=== PATIENT | male | born 1975 | race Caucasian/White ===

== ENCOUNTER 2017-07-05 22:51 | Emergency (ER) | payer BC ==
[~2017-07-05] VITALS: Ht 180.3 cm; Wt 89.5 kg
[2017-07-05 22:54] VITALS: TEMP 37; Ht 180.3 cm; Wt 89.5 kg
[2017-07-05] MEDS ORDERED: OPTIRAY 320 IV PRN (23:45)
[2017-07-06 00:05] LABS: ISTAT CREATININE 0.9 mg/dl (0.6-1.3); ISTAT IONIZED CALCIUM 1.2 mmol/l (1.12-1.32); ISTAT POTASSIUM 3.9 mEq/L (3.3-5.0)
[2017-07-06] MEDS ORDERED: IBUPROFEN 600 MG TAB PO STA (02:02)
--- NOTE | 2017-07-06 02:02 | EMERGENCY ROOM VISIT NOTE ---
History Report prepared by Renard: Gauri Olguin Under the Supervision of: Dr. Marcie Bowden D.O. First contact with patient: 23:16 Chief Complaint: FALL Stated Complaint: HEADACHE,FELL EARLIER TODAY History of Present Illness The patient is a 41 year old male who presents to the Emergency Room with complaints of an episode of a fall occurring 10 hours ago. The patient states that he was tearing down a rotted second floor deck when a beam let loose and he fell. He reports that he fell 9 feet to a deck below onto his back. He reports that he was able to reach into his belt to call a coworker that was on the road. He states that his coworker helped him up and he went home for some rest. The patient states that he felt sore down his back and had a stiff neck, but otherwise felt okay. He reports that he started to develop a headache on the side and top his head. He states that he usually does not get headaches and this one started to get fairly bad. The patient notes that the development of the headache was what prompted him to come to the ED. He notes that he didn't think he hit his head that hard, but it happened so fast he might be wrong. He notes that his headache gets worse when he lies down. The patient states that he was nauseous right after the fall, but hadn't eaten all day. He reports that once he ate, he felt better. The patient complains of right hand numbness. He notes that he had blurry vision, but hasn't had his eyes checked in a while and is unsure if it was that way prior to the fall. The patient denies loss of consciousness, numbness up his right arm, dizziness, lightheadedness, ringing in his ears, chest pain, shortness of breath, abdominal pain, and urinary symptoms. Source of History: patient Onset: 10 hours ago Position: other (global) Quality: other (fall) Timing: other (episode) Associated Symptoms: + headache, + neck pain, + back pain, + numbness ( right hand), No chest pain, No SOB, No nausea, No abdominal pain, No urinary symptoms Note: The patient complains of blurry vision. The patient denies numbness up his right arm, dizziness, lightheadedness, and ringing in his ears. Review of Systems See HPI for pertinent positives & negatives. A total of 10 systems reviewed and were otherwise negative. Past Medical & Surgical Medical Problems: (1) Foreign body, eye Family History Diabetes mellitus FHx: cancer Social History Smoking Status: Current Every Day Smoker Marital Status: Housing Status: lives with family Occupation Status: employed Current/Historical Medications No Active Prescriptions or Reported Meds Allergies Coded Allergies: No Known Allergies (Verified , 07/06/17) Physical Exam Vital Signs Date Time Temp Pulse Resp B/P (MAP) Pulse Ox O2 Delivery O2 Flow Rate FiO2 07/06/17 02:09 67 17 108/69 97 Room Air 07/06/17 00:45 69 18 114/71 95 Room Air 07/05/17 22:54 37.0 76 16 125/80 95 Room Air Physical Exam GENERAL: alert, well appearing, well nourished, no distress, non-toxic HEAD: normal cephalic, atraumatic EYE EXAM: normal conjunctiva, PERRL and EOM's grossly intact OROPHARYNX: no exudate, no erythema, lips, buccal mucosa, and tongue normal and mucous membranes are moist EARS: TMs clear b/l NECK: supple, no nuchal rigidity, no adenopathy, non-tender CHEST: stable to compression anteriorly and posteriorly LUNGS: clear to auscultation. Normal chest wall mechanics HEART: no murmurs, S1 normal and S2 normal ABDOMEN: abdomen soft, non-tender, normo-active bowel sounds, no masses, no rebound or guarding. PELVIS: stable to compression anteriorly and posteriorly BACK: Back is symmetrical on inspection and there is no deformity, no CVA tenderness, upper T- spine and lumbar spine tenderness. UPPER EXTREMITIES: full active and passive range of motion of all joints without tenderness to palpation. Ever so slightly decreased hand car parker on the right, but equal biceps and triceps strength bilaterally at 5/5. Normal sensory. Subjective numbness to the distal second thru fifth digits on the right hand. LOWER EXTREMITIES: full active and passive range of motion of all joints without tenderness to palpation. 5/5 strength bilaterally. NEURO EXAM: Normal sensorium, cranial nerves II-XII grossly intact, normal speech, no gross weakness of arms, no gross weakness of legs. GCS: 15. Medical Decision & Procedures ER Provider Diagnostic Interpretation: Radiology results have been interpreted by the radiologist and reviewed by me. CT HEAD: No intracranial hemorrhage, mass effect or calvarial fracture. Ventricles are within normal limits and midline. Visualized paranasal sinuses and orbits appear within limits. Partial opacification of the mastoids and possible soft tissue thickening of the external auditory canals. Radiologist: Dayron Doran MD Study ready at 00:40 and initial results transmitted at 01:27. CT C SPINE: No fracture or malalignment. Radiologist: Dayron Doran MD Study ready at 00:42 and initial results transmitted at 01:30. CT T SPINE: No fracture or malalignment. Radiologist: Dayron Doran MD Study ready at 00:51 and initial results transmitted at 01:50. CT L SPINE: No fracture or malalignment. Radiologist: Dayron Doran MD Study ready at 00:51 and initial results transmitted at 01:51. CT CHEST With Contrast: No evidence of acute traumatic injury. Radiologist: Dayron Doran MD Study ready at 00:46 and initial results transmitted at 01:44. CT ABDOMEN & PELVIS With Contrast: No evidence of acute traumatic injury. Radiologist: Dayron Doran MD Study ready at 00:46 and initial results transmitted at 01:44. Laboratory Results Test 07/05/17 23:49 Bedside Hemoglobin 16.3 g/dl (14.0-18.0) Bedside Hematocrit 48 % (42-52) Bedside Sodium 140 mEq/L (135-144) Bedside Potassium 3.9 mEq/L (3.3-5.0) Bedside Chloride 102 mEq/L (101-112) Bedside Total CO2 25 mEq/l (24-31) Anion Gap 19.0 mmol/L (16-25) Bedside Blood Urea Nitrogen 12 mg/dl (7-18) Bedside Creatinine 0.9 mg/dl (0.6-1.3) Bedside Glucose (other) 89 mg/dl (70-99) Bedside Ionized Calcium (Cj) 1.20 mmol/l (1.12-1.32) Laboratory results per my review. Medications Administered Medications (Trade) Dose Ordered Sig/Morris Route Start Time Stop Time Status Last Admin Dose Admin Ibuprofen (Motrin Tab) 600 mg NOW STAT PO 07/06/17 02:02 07/06/17 02:03 DC 07/06/17 02:08 600 MG ECG Per My Interpretation Indication: back/shoulder pain Rate (beats per minute): 70 Rhythm: sinus rhythm Findings: no acute ischemic change, no ectopy, other (normal axis, normal intervals) ED Course 2316: The patient was evaluated in room B2. A complete history and physical exam was performed. 020: Ordered Motrin Tab 600 mg PO. 211: Upon reevaluation, the patient is feeling better, but still has a headache. On repeat neuro exam, the patient no longer has numbness in his had and his car parker strength is equal bilaterally. I discussed the findings and the treatment plan with the patient. He verbalizes agreement and understanding. The patient was discharged home. Medical Decision Differential diagnoses include major intracranial, cervical, spinal, thoracic, abdominal, pelvic and neurologic injury. Fracture, contusion, sprain, strain, laceration, abrasions included as well. Pt with concerning presentation for trauma with negative imaging and reassuring labs several hours after event. VS stable throughout. Initial mild right hand numbness/car parker weakness may have been due to minor neuropraxia as pt states he hit his right elbow. He stated he felt as though it was improving slowly from earlier and by my repeat exam sx had resolved and car parker strength was normal as was all other strength testing. Pt with otw normal neuro exam. Discussed with him concussion precautions, f/u with pcp, sx to watch/return for, he verbalized understanding and was agreeable with plan. Pt well appearing at DC, ambulating with a steady gait. All questions answered at bedside. I have a low suspicion for additional occult traumatic injury. Pt made aware that our radiologist would overread imaging in the morning and he would be called with any discrepancies. Head Trauma GCS Score: 15 Medication Reconcilliation Current Medication List: was personally reviewed by me Blood Pressure Screening Patient's blood pressure: Normal blood pressure Blood pressure disposition: Did not require urgent referral Impression Primary Impression: Fall Additional Impressions: CHI (closed head injury) Concussion Back pain Scribe Attestation The scribe's documentation has been prepared under my direction and personally reviewed by me in its entirety. I confirm that the note above accurately reflects all work, treatment, procedures, and medical decision making performed by me. Departure Information Dispostion Home / Self-Care Prescriptions No Active Prescriptions or Reported Meds Referrals [facility] Michael M.D. (PCP) Forms HOME CARE DOCUMENTATION FORM, IMPORTANT VISIT INFORMATION Patient Instructions My [facility] Additional Instructions Please stay well-hydrated and drink plenty of water. You may use Tylenol and ibuprofen as needed for pain. Please avoid any heavy lifting or strenuous activity until you are feeling better. If you have any worsening symptoms including persistent or worsening headache, vision changes, lightheadedness or dizziness, numbness or tingling, weakness in arm or leg, trouble breathing, nausea or vomiting, or any other new concerns, please return the emergency room. Please call follow-up with your family doctor as a precaution to assure that your symptoms are improving. Problem Qualifiers Primary Impression: Fall Encounter type: initial encounter Qualified Codes: W19.XXXA - Unspecified fall, initial encounter Additional Impressions: CHI (closed head injury) Encounter type: initial encounter Qualified Codes: S09.90XA - Unspecified injury of head, initial encounter Concussion Encounter type: initial encounter Loss of consciousness presence/duration: without LOC Qualified Codes: S06.0X0A - Concussion without loss of consciousness, initial encounter Back pain Back pain location: back pain in unspecified location Chronicity: acute Back pain laterality: midline Qualified Codes: M54.9 - Dorsalgia, unspecified
[2017-07-06 02:09] VITALS: BP 108/69; PULSE 67; O2SAT 97
--- NOTE | 2017-07-06 07:10 | DIAGNOSTIC IMAGING REPORT ---
HEAD CT NONCONTRAST CT DOSE: HISTORY: Headache. trauma TECHNIQUE: Multiaxial CT images of the head were performed without the use of intravenous contrast. Automated exposure control was utilized for this study. A dose lowering technique was utilized adhering to the principles of ALARA. Comparison: None. Findings: A few opacified right inferior mastoid air cells. The paranasal sinuses and left mastoid air cells are clear. Soft tissue opacification of the right external auditory canal. This is likely chronic. The calvarium and skull base are intact. The ventricles and sulci are within normal limits. There is no mass, hematoma, midline shift, or acute infarct. Impression: No acute intracranial abnormality. Electronically signed by: Alessandro Mtz M.D. 07/06/2017 7:09 AM Dictated Date/Time: 07/06/2017 7:06 AM
--- NOTE | 2017-07-06 07:14 | DIAGNOSTIC IMAGING REPORT ---
CERVICAL SPINE CT CT DOSE: HISTORY: trauma TECHNIQUE: Multiaxial CT images of the cervical spine were performed and reformatted in the sagittal and coronal plane without the use of contrast. A dose lowering technique was utilized adhering to the principles of ALARA. COMPARISON: None. FINDINGS: No fractures. No subluxation. Prevertebral soft tissues and the C1-C2 interval are intact. No pneumothorax. A 4 mm nodule within the right lung apex. IMPRESSION: No fractures within the cervical spine. A 4 mm nodule within the right lung apex. One-year chest CT follow up is recommended. This finding was called/faxed to the emergency Department due to the follow-up recommendation. Electronically signed by: Alessandro Mtz M.D. 07/06/2017 7:12 AM Dictated Date/Time: 07/06/2017 7:09 AM
--- NOTE | 2017-07-06 07:43 | DIAGNOSTIC IMAGING REPORT ---
CT SCAN OF THE THORACIC SPINE WITHOUT IV CONTRAST CLINICAL HISTORY: Trauma. Fall. COMPARISON STUDY: Chest CT performed concurrently on 07/06/2017. TECHNIQUE: CT scan of the thoracic spine is performed from the lower cervical spine to the upper lumbar spine. Images are reviewed in the axial, sagittal, and coronal planes. IV contrast was not administered specifically for this examination. There is IV contrast present from the concurrently performed chest CT. A dose lowering technique was utilized adhering to the principles of ALARA. CT DOSE: 2706.97 mGy.cm FINDINGS: The skeletal structures are well mineralized. There is no evidence of fracture or malalignment involving the thoracic spine. Vertebral body height and alignment are maintained. The transverse and spinous processes appear intact. No lytic or blastic lesion is seen. Tiny anterior osteophytes are seen throughout. The intervertebral disc spaces appear maintained. There is no evidence of large disc herniation or high-grade central canal stenosis by CT criteria. The paraspinous soft tissues are within normal limits. The thyroid gland is normal as imaged. There is a 9 mm pleural-based nodule in the right upper lobe seen on image 79. The lung parenchyma is otherwise clear as visualized. No pneumothorax is seen. IMPRESSION: 1. There is no evidence of fracture or malalignment involving the thoracic spine. 2. There is a 9 mm pleural-based nodule in the right upper lobe. See report of chest CT performed concurrently for detailed findings and follow-up recommendations. Dictated: 07/06/2017 7:29 AM Transcribed: 07/06/2017 7:43 AM Vel Electronically signed by: Brian Vera M.D. 07/06/2017 7:44 AM Dictated Date/Time: 07/06/2017 7:29 AM
--- NOTE | 2017-07-06 07:45 | DIAGNOSTIC IMAGING REPORT ---
CT SCAN OF THE CHEST, ABDOMEN, AND PELVIS WITH IV CONTRAST CLINICAL HISTORY: Trauma. Fall. COMPARISON STUDY: KUB dated 12/07/2015. TECHNIQUE: Following the IV administration of 115 of Optiray 320, CT scan of the chest, abdomen, and pelvis was performed from the thoracic inlet to the proximal femora. Images are reviewed in the axial, sagittal, and coronal planes. IV contrast was administered without complication. Automated dose control exposure was utilized. A dose lowering technique was utilized adhering to the principles of ALARA. FINDINGS: CHEST: Thyroid: Imaged portions of the thyroid gland are normal in size and attenuation. Thoracic aorta: The thoracic aorta is normal in caliber and demonstrates bovine variant arch anatomy. No dissection is seen. Pulmonary vasculature: The pulmonary trunk is mildly dilated measuring 3.4 cm in diameter. This suggests pulmonary artery hypertension. There are no filling defects identified in the central pulmonary vessels to indicate pulmonary embolus. Note that this examination was not protocoled for evaluation of the pulmonary arteries. Heart: The heart is top normal in size and without pericardial effusion. Lungs and pleural spaces: Evaluation of the lung parenchyma is modestly degraded by motion artifact. There is no airspace consolidation, pleural effusion, or pneumothorax. Dependent atelectasis is noted. The trachea and central airways are clear. There is a 9 mm pleural-based nodule in the right upper lobe seen on image #78. There is an 8 mm nodule at the lateral right lung base seen on image #222. A 3 mm pleural-based nodule is seen in the right lower lobe along the major fissure on image #172, and a 7 mm pleural-based nodule is seen in the lingula along the major fissure on image #144. A 5 mm pleural-based nodule at the anterior left lung base as seen on image #208. Mediastinum: There is no mediastinal hematoma or lymphadenopathy. Isabel: Clear. Axillae: There is no axillary lymphadenopathy. Bony thorax: No lytic or blastic lesions are identified. ABDOMEN AND PELVIS: Liver: The contrast-enhanced liver is normal in size, contour, and attenuation. There is no intrahepatic or ductal dilatation. The hepatic veins and portal veins are patent. Fatty infiltration is seen adjacent to falciform ligament. Gallbladder: Unremarkable. Spleen: Normal in size and attenuation. Pancreas: Unremarkable. Adrenal glands: Unremarkable. Kidneys: The contrast enhanced kidneys are normal in size and without hydronephrosis. The kidneys enhance symmetrically. Abdominal vasculature: The abdominal aorta is normal in course and caliber. Stomach and bowel: There is a small hiatal hernia. The stomach and duodenum otherwise normal in configuration. No bowel obstruction is seen. The appendix is well-visualized and normal. Peritoneum: There is no intraperitoneal free air or abdominal ascites. There is a small fat-containing umbilical hernia. Lymphadenopathy: None. Pelvic viscera: The bladder, prostate, and seminal vesicles are normal as visualized. Skeletal structures: The lumbosacral spine and bony pelvis appear intact. No lytic or blastic lesions are seen. IMPRESSION: 1. There is no acute posttraumatic intrathoracic abnormality. 2. There is no evidence of solid organ injury in the abdomen or pelvis. 3. No fracture is seen. 4. There is no airspace consolidation, pleural effusion, or pneumothorax. 5. There are scattered pulmonary and pleural-based pulmonary nodules as above measuring up to 9 mm. These are pathologically indeterminant and should be followed as per the Fleischner criteria. See below. Please refer to below summary of Fleischner criteria recommendations for follow-up of incidental CT nodules (Nick Sanchez, Guidelines for management of small pulmonary nodules detected on CT scans: A statement from the Fleischner Society, Radiology 237: [phone].) SOLID NODULES Solitary nodule size: <6 mm * low risk patients: no follow-up needed * high risk patients: optional CT at 12 months Solitary nodule size: 6-8 mm * low risk patients: follow-up at 6-12 months, then consider further follow-up at 18-24 months * high risk patients: initial follow-up CT at 6-12 months and then at 18-24 months if no change Solitary nodule size: >8 mm * either low or high risk patients - consider follow-up CT at 3 months, and/or CT-PET, and/or biopsy Multiple nodules size: <6 mm * low risk patients: no routine follow-up * high risk patients: optional CT at 12 months Multiple nodules size: 6-8 mm * low risk patients: follow-up at 3-6 months, then consider further follow-up at 18-24 months * high risk patients: follow-up at 3-6 months, then at 18-24 months if no change Multiple nodules size: >8 mm * low risk patients: follow-up at 3-6 months, then consider further follow-up at 18-24 months * high risk patients: follow-up at 3-6 months, then at 18-24 months if no change Note: newly detected indeterminate nodule in persons 35 years of age or older. * low risk patients: minimal or absent history of smoking and/or other known risk factors * high risk patients: history of smoking or of other known risk factors (e.g. first degree relative with lung cancer, or exposure to asbestos, radon, uranium) * if a nodule up to 8 mm is partly solid or is ground glass further follow-up is required after 24 months to exclude possible slow growing adenocarcinoma (ZEE) SUBSOLID NODULES Solitary pure ground-glass nodule * nodule size <6 mm - no CT follow-up required * nodule size >=6 mm - follow-up CT at 6-12 months, then every 2 years until 5 years Solitary part-solid nodule * nodule size <6 mm - no CT follow-up required * nodule size >=6 mm - follow-up CT at 3-6 months. If unchanged, and solid component remains <6 mm, then annual follow-up for 5 years Multiple subsolid nodules * nodule size <6 mm - follow-up CT at 3-6 months, consider further follow-up at 2 and 4 years if stable * nodule size >=6 mm - follow-up CT at 3-6 months, subsequent management based on the most suspicious nodule(s) Electronically signed by: Brian Vera M.D. 07/06/2017 7:43 AM Dictated Date/Time: 07/06/2017 7:28 AM
--- NOTE | 2017-07-06 07:45 | DIAGNOSTIC IMAGING REPORT ---
CT SCAN OF THE LUMBAR SPINE WITHOUT IV CONTRAST CLINICAL HISTORY: Trauma. Fall. COMPARISON STUDY: CT scan of the abdomen and pelvis performed concurrently on 07/04/2017. TECHNIQUE: CT scan of the lumbar spine is performed from the lower thoracic spine to the sacrum. Images are reviewed in the axial, sagittal, and coronal planes. IV contrast was not administered specifically for this examination. There is IV contrast present from the concurrently performed abdominal CT. A dose lowering technique was utilized adhering to the principles of ALARA. FINDINGS: Skeletal structures are well mineralized. There is no evidence of fracture or malalignment involving the lumbar spine. Vertebral body height and alignment are maintained. The transverse and spinous processes appear intact. There is no evidence of spondylolysis. No lytic or blastic lesion is seen. There is minimal degenerative disc space narrowing at L3-L4 and L4-L5 with small posterior disc bulges at these levels. There is no CT evidence of large disc herniation or high-grade central canal stenosis. The visualized sacrum and bony pelvis appear intact. The paraspinous soft tissues are normal in appearance. The partially imaged retroperitoneal structures are grossly normal but incompletely assessed. IMPRESSION: There is no evidence of fracture or malalignment involving the lumbar spine. Dictated: 07/06/2017 7:26 AM Transcribed: 07/06/2017 7:45 AM FELICE_Marisol Electronically signed by: Brian Vera M.D. 07/06/2017 8:05 AM Dictated Date/Time: 07/06/2017 7:26 AM
== END 2017-07-06 02:25 | disposition home or self-care (01) ==
LOC: C.EDB 22:52
DX: S06.0X0A Concussion without loss of consciousness, initial encounter (principal); M54.9 Dorsalgia, unspecified; W17.89XA Other fall from one level to another, initial encounter; Y92.89 Other specified places as the place of occurrence of the external cause; F17.210 Nicotine dependence, cigarettes, uncomplicated

== ENCOUNTER 2021-03-13 09:39 | Observation (INO) ==
--- NOTE | 2021-03-13 09:49 | Emergency Department Note ---
History of Present Illness General Chief complaint: Infection Stated complaint: INFECTION IN JAW, REFERRED Time Seen by Provider: 03/13/21 09:44 Source: patient Mode of arrival: ambulatory Limitations: no limitations History of Present Illness Provider complaint: Jaw pain/swelling Onset (ago): day(s) 5 Location: face Radiation: non-radiation Severity: severe Pain Consistency: + constant Maximum Pain Intensity: 7 Current Pain Intensity: 7 Quality: + sharp Relieved By: + medication (Ibuprofen) Exacerbated By: + eating Associated symptoms: + denies other symptoms Treatments prior to arrival: NSAID This patient is a 45-year-old male who presents to the emergency department evaluation of right lower jaw pain. Patient reports that one of his right lower molars broke off about 6 days ago while eating. Over the past 5 days, he has had progressively worsening pain and swelling in the right lower jaw. He reports pain with opening his mouth and eating. He states that ibuprofen does help, but wears off quickly. He rates his discomfort a 7/10 at this time. He admits he has not seen a dentist in some time. He denies fever/chills, nausea or vomiting. Home Medications Medication Instructions Recorded Confirmed Type No Known Home Medications 03/13/21 03/13/21 History Allergies Allergy/AdvReac Type Severity Reaction Status Date / Time No Known Allergies Allergy Unknown Verified 03/13/21 11:16 Past Med/Surg History Medical History No significant past medical history Surgical History No significant past surgical history Family History Mother Colorectal cancer Father Diabetes Social History (Updated 03/13/21 @ 14:06 by Miranda Emerson PA-C) Smoking Status: Current every day smoker Tobacco Type: Cigarettes packs per day: 1; Years Smoked: 25; Cigarettes Per Day: pack; Do You Dip or Chew Tobacco: No; Hx Alcohol Use: Yes Alcohol type: beer Alcohol Intake Frequency: 2-3 x/Week Hx Substance Use: No Preferred Language: Argentine 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 Beliefs That Will Affect Care: None Current Living Situation: Spouse and Family Feels Safe at Home: Yes Assistive Devices: None Review of Systems A total of 10 systems reviewed and were otherwise negative Physical Exam Vital Signs Vital Signs - 24 hr 03/13/21 09:41 03/13/21 10:20 03/13/21 12:00 Temperature 36.8 C Temperature Source Oral Pulse Rate 94 H 74 Pulse Rate [Apical] 77 78 Pulse Rhythm [Apical] Regular Pulse Strength [Apical] Normal Respiratory Rate 20 24 16 Respiratory Effort / Characteristics Non-Labored Non-Labored Non-Labored Respiratory Depth Normal Normal Normal Blood Pressure 129/76 Blood Pressure [Left Arm] 122/68 135/70 Blood Pressure Mean 93 Blood Pressure Mean [Left Arm] 86 91 Pulse Oximetry 97 95 96 Oxygen Delivery Method Room Air Room Air Room Air Sepsis Recent Fever Within 48 Hours No Sepsis New/Unexplained Change in Mental Status N/A Sepsis Action Taken by Nursing No Action Required VITALS: Vitals are noted on the nurse's note and reviewed by myself. GENERAL: This is a 45-year-old man, in no acute distress, well-developed well- nourished. SKIN: The skin was without rashes. EARS: External auditory canals clear, tympanic membranes pearly arce without erythema or effusion bilaterally. EYES: Pupils equal round and reactive to light and accommodation. NOSE: Patent, turbinates without inflammation or discharge. MOUTH: Edema noted in the right lower gums with overall poor dentition. In duration and edema noted to the right lower jaw. Mild trismus noted. NECK: Induration and edema noted to the right lower jaw extending slightly into the neck. HEART: Regular rate and rhythm without murmurs gallops or rubs. LUNGS: Clear to auscultation bilaterally without wheezes, rales or rhonchi. NEURO: Patient was alert and oriented to person place and time. Course Consultations Consultation #1: Dr. Alvarado - maxillofacial surgery Consultation #2: Miranda Emerson PA-C - [facility] hospitalist Administered Medications Sodium Chloride (Nss 1000ml) 1,000 mls @ 125 mls/hr IV .Q8H DERIAN Stop: 03/14/21 07:12 Last Admin: 03/13/21 15:40 Dose: 125 mls/hr Documented by: [id number] Discontinued Medications Ampicillin Sodium/Sulbactam Sodium 3,000 mg/ Sodium Chloride 108 mls @ 200 mls/hr IV NOW STA; Protocol Stop: 03/13/21 10:33 Last Infusion: 03/13/21 11:00 Dose: 0 mls/hr Documented by: [id number] Admin: 03/13/21 10:26 Dose: 200 mls/hr Documented by: [id number] Ioversol (Optiray 320 100ml) 95 ml IV ONCE ONE Stop: 03/13/21 11:40 Last Admin: 03/13/21 11:32 Dose: 95 ml Documented by: [id number] Ketorolac Tromethamine (Ketorolac Tromethamine 15 Mg/Ml Vial) 15 mg IV NOW STA Stop: 03/13/21 10:02 Last Admin: 03/13/21 10:26 Dose: 15 mg Documented by: [id number] Ketorolac Tromethamine (Ketorolac Tromethamine 15 Mg/Ml Vial) 15 mg IV NOW STA Stop: 03/13/21 14:05 Last Admin: 03/13/21 14: Dose: 15 mg Documented by: [id number] Medical Decision Making Differential Diagnosis Differential diagnosis includes dental caries, periapical abscess, facial ce llulitis, Renaldo's angina, pharyngitis, referred pain, among others. Home Medications Current Medication List: was personally reviewed by me Laboratory Data Attestation: I reviewed the patient's lab results. Result diagrams: 03/13/21 10:19 03/13/21 10:19 Lab Results 03/13/21 03/13/21 03/13/21 Range/Units 10:19 10:19 12:15 WBC 9.69 (4.8-10.8) K/uL RBC 5.06 (4.7-6.1) M/uL Hgb 16.3 (14.0-18.0) g/dL Hct 46.6 (42-52) % MCV 92.1 (80-100) fL MCH 32.2 (25-34) pg MCHC 35.0 (32-36) g/dL RDW Std Deviation 41.2 (36.4-46.3) fL RDW Coeff of Yazmin 12.2 (11.5-14.5) % Plt Count 229 (130-400) K/uL MPV 9.8 (7.4-10.4) fL Immature Gran % (Auto) 0.1 % Neut % (Auto) 70.9 % Lymph % (Auto) 14.9 % Ward % (Auto) 11.9 % Eos % (Auto) 2.0 % Baso % (Auto) 0.2 % Neut # (Auto) 6.88 H (1.4-6.5) K/uL Lymph # (Auto) 1.44 (1.2-3.4) K/uL Ward # (Auto) 1.15 H (0.11-0.59) K/uL Eos # (Auto) 0.19 (0-0.5) K/uL Baso # (Auto) 0.02 (0-0.2) K/uL Immature Gran # (Auto) 0.01 (0.00-0.02) K/uL Sodium 134 L (136-145) mmol/L Potassium 4.0 (3.5-5.1) mmol/L Chloride 99 (98-107) mmol/L Carbon Dioxide 27 (21-32) mmol/L Anion Gap 8 (3-11) BUN 11 (6-23) mg/dl Creatinine 0.72 (0.6-1.4) mg/dl Est Cr Clr Drug Dosing 144.2 ml/min Est GFR ( Amer) 129.7 ml/min Est GFR (Non-Af Amer) 111.9 ml/min BUN/Creatinine Ratio 15.3 (10-20) Glucose 109 H (70-99(Fasting)) mg/dl Calcium 9.5 (8.5-10.1) mg/dl Total Bilirubin 1.1 H (0.2-1.0) mg/dl AST 18 (13-39) U/L ALT 26 (7-52) U/L Alkaline Phosphatase 78 (34-104) U/L Total Protein 7.9 (6.0-8.3) gm/dl Albumin 4.5 (3.4-5.0) gm/dl Globulin 3.4 (2.5-4.0) gm/dl Albumin/Globulin Ratio 1.3 (0.9-2) SARS-CoV-2, RNA, NAAT NEGATIVE (NEGATIVE) Imaging Data Attestation: I personally reviewed and interpreted this imaging study as follows: Radiologist's Impression: Soft Tissue Neck CT 03/13/21 10:01 CT OF THE NECK WITH IV CONTRAST CLINICAL HISTORY: Right lower jaw swelling. COMPARISON STUDY: No previous studies for comparison. TECHNIQUE: Following IV administration of 95 mL of Optiray, helical axial images of the neck were obtained. Sagittal and coronal reconstructions were viewed. Automated exposure control was utilized for the study. A dose lowering technique was utilized adhering to the principles of ALARA. CT DOSE: 410.12 mGycm FINDINGS: Visualized portions of the intracranial contents are unremarkable. Bilateral mastoid air cells are partially opacified. Visualized portions of the sinuses are clear. No orbital abnormality is identified on this exam. The epiglottis is normal. Note is made of a dental caries of the right second mandibular molar with associated periapical abscess with associated disruption of the medial cortex of the mandible. There is an adjacent rim-enhancing fluid collection which measures 3.7 x 1.7 cm consistent with an abscess. There is extensive adjacent inflammation with thickening of the right platysma and adjacent fluid. No additional fluid collections are present. There is no soft tissue gas. Inflammation results in mild effacement of the pharynx. Lung apices are unremarkable. Major vasculature of the neck is patent. Multiple mildly enlarged right cervical lymph nodes are likely reactive. Inflammation adjacent to the right submandibular gland is due to the odontogenic infection. IMPRESSION: 1. 3.7 x 1.7 cm abscess along the body of the right hemimandible, as described above. This is due to a periapical abscess of the right second mandibular molar with associated cortical disruption. Extensive adjacent inflammation with mild effacement of the pharynx. 2. Mildly enlarged right cervical lymph nodes which are likely reactive. ACT 112: Negative or not required by law. Electronically signed by: James Burris M.D. 03/13/2021 11:54 AM MDM Narrative Continuous athletic monitor: Order was placed for continuous athletic monitor. Patient was placed on the athletic monitor. Patient was noted to be in normal sinus rhythm at an initial rate of 82 bpm. This patient is a 45-year-old male who presents to emergency department for evaluation of an infection of his right lower jaw. Patient has had some pain and swelling worsening over the past 5 days. He has significant swelling and induration on exam. He was given a dose of IV Unasyn and Toradol for pain. CT scan was performed and does show an abscess as well as significant induration and mild effacement of the pharynx. Case was discussed with Dr. Alvarado of maxillofacial surgery, who did evaluate the patient. He recommended admission and keeping the patient n.p.o. after midnight as he will evaluate him tomorrow for possible surgery[facility] abdirashid luate the patient for further care. Impression & Plan Odontogenic infection of jaw, Trismus Discharge Plan Visit Data Chief Complaint: Infection Stated Complaint: INFECTION IN JAW, REFERRED ED Provider: Brian Guerrero ED Midlevel Provider: Lisbet Polk Discharge Problem: Odontogenic infection of jaw, Trismus Patient Disposition: Admitted As Inpatient Discharge Instructions Interventions: ED Discharge Assessment Last Done: 03/13/21 14:28
[2021-03-13] MEDS ORDERED: KETOROLAC TROMETHAMINE 15 MG/ML VIAL IV STA ×2 (10:01→14:04)
[2021-03-13] MEDS ORDERED: AMPICILLIN/SULBACTAM SOD 3,000 MG in 0.9 % SODIUM CHLORIDE 100 ML IV STA (10:01)
[2021-03-13 10:31] LABS: Basophils # (auto) 0.02 K/uL (0-0.2); Basophils % (auto) 0.2 %; Eosinophils # (auto) 0.19 K/uL (0-0.5); Hematocrit (blood only) 46.6 % (42-52); Hemoglobin 16.3 g/dL (14.0-18.0); Immature Granulocytes # (auto) 0.01 K/uL (0.00-0.02); Immature Granulocytes % (auto) 0.1 %; Lymphocytes # (auto) 1.44 K/uL (1.2-3.4); Lymphocytes % (auto) 14.9 %; Mean Corpuscular Hemoglobin 32.2 pg (25-34); Mean Corpuscular Volume 92.1 fL (80-100); Mean Platelet Volume 9.8 fL (7.4-10.4); Monocytes # (auto) 1.15 K/uL (0.11-0.59); Monocytes % (auto) 11.9 %; Neutrophils # (auto) 6.88 K/uL (1.4-6.5); Neutrophils % (auto) 70.9 %; Platelet Count 229 K/uL (130-400); RDW Coefficient of Variation 12.2 % (11.5-14.5); RDW Standard Deviation 41.2 fL (36.4-46.3); Red Blood Count 5.06 M/uL (4.7-6.1); White Blood Count 9.69 K/uL (4.8-10.8)
[2021-03-13 11:19] LABS: Albumin Globulin Ratio 1.3 (0.9-2); Albumin Level 4.5 gm/dl (3.4-5.0); BUN Creatinine Ratio 15.3 (10-20); Bilirubin,Total 1.1 mg/dl (0.2-1.0); Calcium 9.5 mg/dl (8.5-10.1); Creatinine Clr Calc Pharmacy 144.2 ml/min; Est GFR (African American) 129.7 ml/min; Est GFR (Non-African American) 111.9 ml/min; Globulin 3.4 gm/dl (2.5-4.0); Total Protein 7.9 gm/dl (6.0-8.3)
[2021-03-13] MEDS ORDERED: OPTIRAY 320 100ml IV ONE (11:39)
--- NOTE | 2021-03-13 11:56 | CT Scan Report ---
CT OF THE NECK WITH IV CONTRAST CLINICAL HISTORY: Right lower jaw swelling. COMPARISON STUDY: No previous studies for comparison. TECHNIQUE: Following IV administration of 95 mL of Optiray, helical axial images of the neck were ob tained. Sagittal and coronal reconstructions were viewed. Automated exposure control was utilized f or the study. A dose lowering technique was utilized adhering to the principles of ALARA. CT DOSE: 410.12 mGycm FINDINGS: Visualized portions of the intracranial contents are unremarkable. Bilateral mastoid air c ells are partially opacified. Visualized portions of the sinuses are clear. No orbital abnormality is identified on this exam. The epiglottis is normal. Note is made of a dental caries of the right [place] mandibular molar with associated periapical abscess with associated disruption of the medial florentin x of the mandible. There is an adjacent rim-enhancing fluid collection which measures 3.7 x 1.7 cm co nsistent with an abscess. There is extensive adjacent inflammation with thickening of the right platy sma and adjacent fluid. No additional fluid collections are present. There is no soft tissue gas. Inf lammation results in mild effacement of the pharynx. Lung apices are unremarkable. Major vasculature of the neck is patent. Multiple mildly enlarged right cervical lymph nodes are likely reactive. Infla mmation adjacent to the right submandibular gland is due to the odontogenic infection. IMPRESSION: 1. 3.7 x 1.7 cm abscess along the body of the right hemimandible, as described above. This is due to a periapical abscess of the right second mandibular molar with associated cortical disruption. Extens emory adjacent inflammation with mild effacement of the pharynx. 2. Mildly enlarged right cervical lymph nodes which are likely reactive. ACT 112: Negative or not required by law. Electronically signed by: James Burris M.D. 03/13/2021 11:54 AM
--- NOTE | 2021-03-13 13:22 | Oral/Maxillofacial Consult ---
Date of Consultation March 13, 2021 Assessment & Plan (1) Dental abscess: (2) Trismus: (3) Submandibular space infection: History of Present Illness Reason for Consultation: right facial abscess and infected # 31 tooth. Requesting Physician: Emergency Dept. History of Present Illness Emergency Oral Maxillofacial Surgery Exam for right side submandibular abscess with fractured # 31 Present Complaint: I have pain/swelling from my infected tooth that fractured# 31 lower right Symptoms have been ongoing for a while. Now really swollen and I can`t open my mouth Oral Exam: Finding-Swollen right submandibular and floor of mouth spaces. Swelling right mandibular space which is causing the trismus. tender gingival tissue with deep pocket formation. The swelling is very hard and no clinical evidence of localization is noted clinically Imaging: I personal reviewed the CT scan CT OF THE NECK WITH IV CONTRAST CLINICAL HISTORY: Right lower jaw swelling. FINDINGS: Visualized portions of the intracranial contents are unremarkable. Bilateral mastoid air cells are partially opacified. Visualized portions of the sinuses are clear. No orbital abnormality is identified on this exam. The epiglottis is normal. Note is made of a dental caries of the right second mandibular molar with associated periapical abscess with associated disruption of the medial cortex of the mandible. There is an adjacent rim-enhancing fluid collection which measures 3.7 x 1.7 cm consistent with an abscess. There is extensive adjacent inflammation with thickening of the right platysma and adjacent fluid. No additional fluid collections are present. There is no soft tissue gas. Inflammation results in mild effacement of the pharynx. Lung apices are unremarkable. Major vasculature of the neck is patent. Multiple mildly enlarged right cervical lymph nodes are likely reactive. Inflammation adjacent to the right submandibular gland is due to the odontogenic infection. IMPRESSION: 1. 3.7 x 1.7 cm abscess along the body of the right hemimandible, as described above. This is due to a periapical abscess of the right second mandibular molar with associated cortical disruption. Extensive adjacent inflammation with mild effacement of the pharynx. 2. Mildly enlarged right cervical lymph nodes which are likely reactivee. Soft tissue: floor of the mouth is very tender and slightly swollen tongue, hard/soft palate, posterior pharyngeal area slightly swollen Right side submandibular area space/mandibular space and floor of the mouth spaces are very swollen with limited open opening. Oral Care: Overall oral care is good Occlusion: Class I TMJ exam: Due to limited opening not able to determine TMJ function at this time Periodontal exam: Overall Healthy gingival tissue without evidence of periodontal pathology. Head/Neck exam: Neck is swollen right side FROM, Able to extend and flex neck w/o difficulty, Noted swelling right side of the neck and inferior boarder of the lower jaw. no airway issues, no evidence of sleep apnea. Treatment Plan: Admission to medical service. IV antibiotics and hydration Pain control Please keep NPO midnight I will see patient in the AM and determine if he is ready for I&D on Wednesday Set up with general anesthesia in hospital due to complexity of the procedure I reviewed the treatment plan and consent with the patient Understanding was expressed. Time was given for questions regarding the surgery, risks and post op care. Risks discussed: Bleeding,Pain,swelling,infection, dry socket, delayed healing, nerve injury to face,lips,tongue,chin area which could be permanent (rare). TMJ, jaw stiffness, change in bite (rare), ear pain (referred). Sinus problems like fistula or infection. Extraoral I&D Home care reviewed: tooth brushing, rinsing, follow up care with Dr Alvarado. Outpatient antibiotics upon discharge Discussed activity level, driving/work while on Rx pain Meds. Surgery to be set up once the infection localizes and drainable pus can be evacuated Allergies Allergy/AdvReac Type Severity Reaction Status Date / Time No Known Allergies Allergy Unknown Verified 03/13/21 11:16 Home Medications Medication Instructions Recorded Confirmed Type No Known Home Medications 03/13/21 03/13/21 History Patient History Medical History No significant past medical history Surgical History No significant past surgical history Family History Mother Colorectal cancer Father Diabetes Social History (Updated 03/13/21 @ 14:06 by Miranda Emerson PA-C) Smoking Status: Current every day smoker Tobacco Type: Cigarettes packs per day: 1; Years Smoked: 25; Cigarettes Per Day: pack; Do You Dip or Chew Tobacco: No; Hx Alcohol Use: Yes Alcohol type: beer Alcohol Intake Frequency: 2-3 x/Week Hx Substance Use: No Preferred Language: Azeri Rehabilitation Engineer Required: No Beliefs That Will Affect Care: None Current Living Situation: Spouse and Family Feels Safe at Home: Yes Assistive Devices: None Results & Data ([facility]) Vital Signs (Past 12 Hours) Vital Signs Temp Pulse Pulse Resp BP BP Pulse Ox 03/13/21 12:00 78 16 135/70 96 03/13/21 10:20 74 77 24 122/68 95 03/13/21 09:41 36.8 C 94 H 20 129/76 97 PG Care Time/CCT Total # of Minutes Spent Total Time Spent with Patient: Total time spent is greater than 50% in coordination of care (as documented) at patient's floor/unit and/or counseling patient: Coding Level of Care Code 62433 Inpt Consult Level 3 Diagnoses Dental abscess K04.7 Trismus R25.2 Submandibular space infection K12.2
--- NOTE | 2021-03-13 14:13 | History & Physical Report ---
Date of Service March 13, 2021 Assessment & Plan (1) Odontogenic infection of jaw: (2) Dental abscess: (3) Trismus: (4) Tobacco abuse: Plan: Admit to med/surg clear liquid diet NPO after midnight IV toradol 15mg q6hr prn pain; IV morphine 2mg q4hr prn Severe pain Continue IV unasyn 3,000mg q6h Oral maxillofacial on board - Dr. Alvarado, possibly to OR tomorrow IVF 125cc/hr x 2 L - re eval in a.m. if requires further IVF avoid oral medications at this point due to trismus nicotine patch ordered for tobacco abuse smoking cessation encouraged routine dental evaluation encouraged DVT ppx: none Pt was seen and examined in collaboration with Dr. Steel, please see addendum History of Present Illness Chief Complaint: R facial pain x 3 days. Primary Care Provider: Nilsa Herrera MD This is a 45-year-old male who has significant past medical history of tobacco abuse who presents to ED secondary to right lower jaw pain x3 to 4 days. He states he broke his tooth on his right lower molar last Wednesday. On Wednesday he started to develop pain in his right lower jaw. Pain has worsened and he has developed significant swelling to right lower jaw. He has been unable to eat anything for the last 3 days due to pain with chewing and difficulty open/closing jaw. He has been able to tolerate liquids, specifically water. He has been taking ibuprofen for pain with minimal relief. He has never had anything similar. He complains of pain as a 7 out of 10 due to recent manipulation from oral surgeon. He denies recent dental work and states it has been a while since seeing a dentist. He denies fever, chills, sweats, lightheadedness, dizziness, difficulty breathing, dysphagia, nausea, vomiting, abdominal pain, changes bowel or urinary habits. He is a 1 pack/day smoker for approximately 25 years. He also drinks occasional alcohol. He denies any illicit drug use. He denies any prior surgical history. Allergies Allergy/AdvReac Type Severity Reaction Status Date / Time No Known Allergies Allergy Unknown Verified 03/13/21 11:16 Home Medications Medication Instructions Recorded Confirmed Type No Known Home Medications 03/13/21 03/13/21 History Past Med/Surg History Medical History No significant past medical history Surgical History No significant past surgical history Family History Mother Colorectal cancer Father Diabetes Social History (Updated 03/13/21 @ 14:06 by Miranda Emerson PA-C) Smoking Status: Current every day smoker Tobacco Type: Cigarettes packs per day: 1; Years Smoked: 25; Hx Alcohol Use: Yes Alcohol type: beer Alcohol Intake Frequency: 2-3 x/Week Hx Substance Use: No Preferred Language: Djib[place]ian Feels Safe at Home: Yes Review of Systems Review of Systems: All systems reviewed & are unremarkable except as noted in HPI & below Physical Exam Physical Exam: Constitutional: WD/WN, vitals as above, NAD, sitting up in bed, pleasant, conversing easily Head: Normocephalic, Atraumatic Eyes: PERRL, conjunctivae normal, anicteric sclerae ENMT: external ear and nose normal, edema noted to right lower mandible, overall poor dentition. Induration to right lower jaw with mild trismus. Pain with palpation to right mandible and right cervical area. Neck: trachea midline, no thyromegaly normal visual inspection Respiratory: normal respiratory effort, lungs clear to auscultation, no wheeze, rales, rhonchi. Normal insp/exp effort, no accessory muscle use Cardiovascular: RRR, no murmur, no edema Vessels: no JVD or carotid bruit Chest: normal inspection of chest Abdomen: normal bowel sounds, soft, nontender, no hepatosplenomegaly Musculoskeletal: no cyanosis or clubbing, extremities motor strength 5/5 Skin: no rashes, warm and dry normal turgor Neurologic: PERRL, EOMI, accommodation nl, no face palsy, no dysarthria CN's II-XI intact bilaterally and moves all extremities Psychiatric: A+Ox3, euthymic affect : deferred Results & Data Results & Data ([facility]) Vital Signs (Past 12 Hours) Vital Signs Temp Pulse Pulse Resp BP BP Pulse Ox 03/13/21 12:00 78 16 135/70 96 03/13/21 10:20 74 77 24 122/68 95 03/13/21 09:41 36.8 C 94 H 20 129/76 97 Diagnostic Findings Soft Tissue Neck CT 03/13/21 10:01 CT OF THE NECK WITH IV CONTRAST CLINICAL HISTORY: Right lower jaw swelling. COMPARISON STUDY: No previous studies for comparison. TECHNIQUE: Following IV administration of 95 mL of Optiray, helical axial images of the neck were obtained. Sagittal and coronal reconstructions were viewed. Automated exposure control was utilized for the study. A dose lowering technique was utilized adhering to the principles of ALARA. CT DOSE: 410.12 mGycm FINDINGS: Visualized portions of the intracranial contents are unremarkable. Bilateral mastoid air cells are partially opacified. Visualized portions of the sinuses are clear. No orbital abnormality is identified on this exam. The epiglottis is normal. Note is made of a dental caries of the right second mandibular molar with associated periapical abscess with associated disruption of the medial cortex of the mandible. There is an adjacent rim-enhancing fluid collection which measures 3.7 x 1.7 cm consistent with an abscess. There is extensive adjacent inflammation with thickening of the right platysma and adjacent fluid. No additional fluid collections are present. There is no soft tissue gas. Inflammation results in mild effacement of the pharynx. Lung apices are unremarkable. Major vasculature of the neck is patent. Multiple mildly enlarged right cervical lymph nodes are likely reactive. Inflammation adjacent to the right submandibular gland is due to the odontogenic infection. IMPRESSION: 1. 3.7 x 1.7 cm abscess along the body of the right hemimandible, as described above. This is due to a periapical abscess of the right second mandibular molar with associated cortical disruption. Extensive adjacent inflammation with mild effacement of the pharynx. 2. Mildly enlarged right cervical lymph nodes which are likely reactive. ACT 112: Negative or not required by law. Electronically signed by: James Burris M.D. 03/13/2021 11:54 AM Medications Administered Medication List Discontinued Medications Ampicillin Sodium/Sulbactam Sodium 3,000 mg/ Sodium Chloride 108 mls @ 200 mls/hr IV NOW STA; Protocol Stop: 03/13/21 10:33 Last Infusion: 03/13/21 11:00 Dose: 0 mls/hr Documented by: [id number] Admin: 03/13/21 10:26 Dose: 200 mls/hr Documented by: [id number] Ioversol (Optiray 320 100ml) 95 ml IV ONCE ONE Stop: 03/13/21 11:40 Last Admin: 03/13/21 11:32 Dose: 95 ml Documented by: [id number] Ketorolac Tromethamine (Ketorolac Tromethamine 15 Mg/Ml Vial) 15 mg IV NOW STA Stop: 03/13/21 10:02 Last Admin: 03/13/21 10:26 Dose: 15 mg Documented by: [id number] COVID-19 Results Results COVID-19 Adm Lab Results: RBC 5.06 M/uL (4.7-6.1) 03/13/21 WBC 9.69 K/uL (4.8-10.8) 03/13/21 Hgb 16.3 g/dL (14.0-18.0) 03/13/21 Hct 46.6 % (42-52) 03/13/21 Plt Count 229 K/uL (130-400) 03/13/21 Neutrophils (%) (Auto) 70.9 % 03/13/21 Lymphocytes (%) (Auto) 14.9 % 03/13/21 Monocytes # (Auto) 1.15 K/uL (0.11-0.59) H 03/13/21 Eosinophils # (Auto) 0.19 K/uL (0-0.5) 03/13/21 Immature Granulocyte % (Auto) 0.1 % 03/13/21 Neutrophils # (Auto) 6.88 K/uL (1.4-6.5) H 03/13/21 Lymphocytes # (Auto) 1.44 K/uL (1.2-3.4) 03/13/21 Monocytes # (Auto) 1.15 K/uL (0.11-0.59) H 03/13/21 Eosinophils # (Auto) 0.19 K/uL (0-0.5) 03/13/21 Basophils # (Auto) 0.02 K/uL (0-0.2) 03/13/21 Immature Granulocyte # (Auto) 0.01 K/uL (0.00-0.02) 03/13/21 Na 134 mmol/L (136-145) L 03/13/21 K 4.0 mmol/L (3.5-5.1) 03/13/21 Cl 99 mmol/L (98-107) 03/13/21 CO2 27 mmol/L (21-32) 03/13/21 Anion Gap 8 (3-11) 03/13/21 BUN 11 mg/dl (6-23) 03/13/21 Creatinine 0.72 mg/dl (0.6-1.4) 03/13/21 BUN/Creatinine Ratio 15.3 (10-20) 03/13/21 Glucose Level 109 mg/dl (70-99(Fasting)) H 03/13/21 Ca 9.5 mg/dl (8.5-10.1) 03/13/21 Total Bilirubin 1.1 mg/dl (0.2-1.0) H 03/13/21 AST/SGOT 18 U/L (13-39) 03/13/21 ALT/SGPT 26 U/L (7-52) 03/13/21 Alkaline Phosphatase 78 U/L (34-104) 03/13/21 Total Protein 7.9 gm/dl (6.0-8.3) 03/13/21 Albumin 4.5 gm/dl (3.4-5.0) 03/13/21 Globulin 3.4 gm/dl (2.5-4.0) 03/13/21 Albumin/Globulin Ratio 1.3 (0.9-2) 03/13/21 SARS-CoV-2, RNA, NAAT NEGATIVE (NEGATIVE) 03/13/21 Code Status & VTE Plan Code Status Full code VTE Prophylaxis Plan VTE Prophylaxis will be ordered: No Supervising Physician Co-Signing Physician Notes Attending addendum: The patient was seen and examined in emergency room Is a 45 years old male without significant past medical history apparently has been complaining of right lower jaw pain since Wednesday Denies any fever and no chills but has not been able to chew or swallowing food for the same. CT scan did show right second mandibular molar abscess with adjoining swelling On examination Complains of pain in the right lower jaw area Hemodynamically stable and is afebrile Chest-clear to auscultate bilaterally Heart-S1, S2 regular Abdomen-benign Extremities-negative for any edema His labs and imaging studies reviewed Has right second mandibular molar abscess with adjoining swelling and was evaluated by maxillofacial surgeon, will have surgery tomorrow Reviewed assessment and plan as outlined above by Miranda Steel
[2021-03-13] MEDS ORDERED: ACETAMINOPHEN 325 MG TAB PO PRN (15:13)
[2021-03-13] MEDS ORDERED: KETOROLAC TROMETHAMINE 15 MG/ML VIAL IV PRN (15:13)
[2021-03-13] MEDS ORDERED: ONDANSETRON INJ 2 MG/ML 2 ML VIAL IV PRN (15:13)
[2021-03-13] MEDS: SODIUM CHLORIDE 0.9% 1000ML 1,000 ML IV SCH ×2 (15:40→23:32)
[2021-03-13] MEDS: NICOTINE 21 MG/24 HR TDSY TD SCH (16:13)
[2021-03-13] MEDS: AMPICILLIN/SULBACTAM SOD 3,000 MG in 0.9 % SODIUM CHLORIDE 100 ML IV SCH ×2 (16:35→20:56)
[2021-03-13] MEDS: MoRPHine SULFATE 2 MG/ML CARP IV PRN (21:00)
[2021-03-13] MEDS ORDERED: ACETAMINOPHEN 1000 MG/100 ML IV IV PRN (23:50)
[2021-03-14] MEDS: AMPICILLIN/SULBACTAM SOD 3,000 MG in 0.9 % SODIUM CHLORIDE 100 ML IV SCH ×4 (03:53→21:58)
[2021-03-14] MEDS: MoRPHine SULFATE 2 MG/ML CARP IV PRN ×3 (03:53→19:13)
[2021-03-14 08:01] LABS: Basophils # (auto) 0.02 K/uL (0-0.2); Basophils % (auto) 0.2 %; Eosinophils # (auto) 0.32 K/uL (0-0.5); Eosinophils % (auto) 2.9 %; Hematocrit (blood only) 41.2 % (42-52); Hemoglobin 13.9 g/dL (14.0-18.0); Immature Granulocytes # (auto) 0.03 K/uL (0.00-0.02); Immature Granulocytes % (auto) 0.3 %; Lymphocytes # (auto) 1.54 K/uL (1.2-3.4); Lymphocytes % (auto) 13.8 %; Mean Corpuscular Hemoglobin 31.2 pg (25-34); Mean Corpuscular Hgb Conc 33.7 g/dL (32-36); Mean Corpuscular Volume 92.6 fL (80-100); Mean Platelet Volume 9.6 fL (7.4-10.4); Monocytes # (auto) 1.41 K/uL (0.11-0.59); Monocytes % (auto) 12.6 %; Neutrophils # (auto) 7.88 K/uL (1.4-6.5); Neutrophils % (auto) 70.2 %; Platelet Count 225 K/uL (130-400); RDW Coefficient of Variation 12.1 % (11.5-14.5); RDW Standard Deviation 41.3 fL (36.4-46.3); Red Blood Count 4.45 M/uL (4.7-6.1)
[2021-03-14 08:33] LABS: Albumin Level 3.4 gm/dl (3.4-5.0); BUN Creatinine Ratio 16.9 (10-20); Bilirubin Direct 0.1 mg/dl (0-0.2); Bilirubin,Total 0.9 mg/dl (0.2-1.0); Calcium 7.8 mg/dl (8.5-10.1); Est GFR (African American) 135.2 ml/min; Est GFR (Non-African American) 116.7 ml/min; Potassium 3.6 mmol/L (3.5-5.1)
[2021-03-14] MEDS: NICOTINE 21 MG/24 HR TDSY TD SCH (08:38)
--- NOTE | 2021-03-14 08:53 | Oral/Maxillofacial Progress Nt ---
Date of Service March 14, 2021 Assessment & Plan Admission and Anticipated Discharge Date Admission Date: March 13, 2021 Subjective The infection is now ready for drainage. I will plan I&D and extraction of # 31 today in the OR with [place]. Plan NPO/ OR later today I reviewed the surgery and risks Consent signed Risks discussed: Bleeding,Pain,swelling,infection, dry socket, delayed healing, nerve injury to face,lips,tongue,chin area which could be permanent (rare). Need to remove drain in office on WednesdayMar 17 TMJ, jaw stiffness, change in bite (rare), ear pain (referred). Sinus problems like fistula or infection. Need to leave a small root fragment in place to avoid injury to nerve or sinus. Relationship of wisdom teeth to nerve/sinus and risk of jaw fracture. Home care reviewed: Oral antibiotics tooth brushing, rinsing, follow up care with Dr Alvarado. diet=[id number] dental. Discussed activity level, driving/work while on Rx pain Meds. Results & Data ([facility]) Vital Signs (Past 12 Hours) Vital Signs Temp Pulse Resp BP Pulse Ox 03/14/21 07:05 36.9 C 75 18 100/61 94 03/13/21 22:35 37.8 C H 89 16 130/62 93 PG Care Time/CCT Total # of Minutes Spent Total Time Spent with Patient: Total time spent is greater than 50% in coordination of care (as documented) at patient's floor/unit and/or counseling patient: Coding Level of Care Code 34048 Subseq Hosp Care Lvl 1
--- NOTE | 2021-03-14 11:54 | Anesthesiology Consultation ---
Date of Service March 14, 2021 Assessment & Plan (1) Encounter for pre-operative examination: Chart Review Chart Review: manager entry initiated History Surgery Operation Date: 03/14/21 10:05 Proposed Procedures p Incision and Drainage General - Lior Velasquez Alvarado, DMD s Extraction Tooth #31 - Lior Alvarado DMD Height/Weight Height: 5 ft 10 in Weight: 88.451 kg Allergies Allergy/AdvReac Type Severity Reaction Status Date / Time No Known Allergies Allergy Unknown Verified 03/13/21 11:16 Medications Home Medications Medication Instructions Recorded Confirmed Last Taken No Known Home Medications 03/13/21 03/13/21 Unknown Active Medications Generic Name Dose Route Start Last Admin Trade Name Freq PRN Reason Stop Dose Admin Acetaminophen 650 mg 03/13/21 15:13 03/13/21 23:30 Acetaminophen 325 Mg Tab PO 04/12/21 15:12 650 mg Q4H PRN Administration pain/fever Acetaminophen 1,000 mg 03/13/21 23:50 03/14/21 05:49 Acetaminophen 1000 Mg/100 Ml Iv IV 03/16/21 23:49 1,000 mg Q8H PRN Administration pain/fever Ampicillin Sodium/Sulbactam 108 mls @ 200 mls/hr 03/13/21 16:00 03/14/21 10: 36 Sodium 3,000 mg/ Sodium IV 03/23/21 15:59 Infused Chloride Q6H DERIAN Infusion Protocol Ketorolac Tromethamine 15 mg 03/13/21 15:13 03/13/21 17:27 Ketorolac Tromethamine 15 Mg/Ml Vial IV 03/18/21 15:12 15 mg Q6H PRN Administration Moderate Pain Miscellaneous 1 ea 03/14/21 08:59 03/14/21 08:39 Remove Nicoderm Patch N/A 04/13/21 08:58 1 ea [id number] DERIAN Administration Morphine Sulfate 2 mg 03/13/21 15:13 03/14/21 08:50 Morphine Sulfate 2 Mg/Ml Carp IV 03/27/21 15:12 2 mg Q4H PRN Administration severe pain Nicotine 21 mg 03/13/21 15:13 03/14/21 08:38 Nicotine 21 Mg/24 Hr Tdsy TD 04/12/21 15:12 21 mg QAM DERIAN Administration NPO Date Last Intake of Fluids: 03/13/21 Time Last Intake of Fluids: 23:40 Last Intake of Fluids Comment: water Date Last Intake of Solids: 03/13/21 Time Last Intake of Solids: 23:40 Last Intake of Solids Comment: tylenol Past Medical History Medical History No significant past medical history Past Family History Family History Mother Colorectal cancer Father Diabetes Past Surgical History Surgical History No significant past surgical history Social History Smoking Status: Current every day smoker tobacco type: cigarettes Smoking cigarettes per day: pack Do You Dip or Chew Tobacco: No Hx Alcohol Use: Yes Alcohol type: beer alcohol intake frequency: a few times a week Hx Substance Use: No Physical Exam Vital Signs Last Vital Signs Temp 98.4 F 03/14/21 07:05 Pulse 75 03/14/21 07:05 Resp 18 03/14/21 07:05 BP 100/61 03/14/21 07:05 Pulse Ox 94 03/14/21 07:05 Testing Laboratory Results 03/14/21 07:32 03/14/21 07:32 Laboratory Tests 03/13/21 12:15 SARS-CoV-2, RNA, NAAT NEGATIVE
[2021-03-14] MEDS ORDERED: BUPIVACAINE/EPINEPHRINE 0.5% 1:200,000 1.8 ML CARP ONE (14:48)
[2021-03-14] MEDS ORDERED: LIDOCAINE/EPINEPHRINE 1.7 ML CTR ONE (14:49)
[2021-03-14] MEDS ORDERED: CHLORHEXIDINE GLUCONATE 0.12% 480 ML ONE (14:49)
[2021-03-14] MEDS ORDERED: MIDAZOLAM HCL 1 MG/ML 2ML VIAL ONE ×2 (15:11→16:56)
[2021-03-14] MEDS ORDERED: fentaNYL citrate 100 MCG/2 ML VIAL ONE (15:11)
--- NOTE | 2021-03-14 16:02 | History & Physical Bridge Note ---
Date of Service March 14, 2021 History & Physical Bridge Note I have examined the patient, reviewed the History & Physical and in the interval since the performance of the History & Physical I have noted the following changes of clinical significance: no changes noted OK--- for I&D with ext of # 31
[2021-03-14] MEDS ORDERED: DexMEDEtomidine HCL IV 100 MCG/ML VIAL ONE (16:19)
[2021-03-14] MEDS ORDERED: LIDOCAINE VISCOUS 2% 15 ML UDC ONE (16:20)
[2021-03-14] MEDS ORDERED: LIDOCAINE 4% INH SOLN 4 ML BTL ONE (16:26)
[2021-03-14] MEDS ORDERED: KETAMINE 50 MG/5 ML SYRINGE ONE (16:33)
[2021-03-14] MEDS ORDERED: ONDANSETRON INJ 2 MG/ML 2 ML VIAL ONE (16:37)
[2021-03-14] MEDS ORDERED: SUCCINYLCHOLINE 100MG/5ML SYR IV ONE (16:37)
[2021-03-14] MEDS ORDERED: DEXAMETHASONE SOD INJ 4 MG/ML VIAL ONE (16:37)
[2021-03-14] MEDS ORDERED: PROPOFOL IV EMULSION 10 MG/ML 20 ML VIAL IV ONE (16:37)
[2021-03-14] MEDS ORDERED: LIDOCAINE 4% INH SOLN 4 ML BTL INH ONE (16:45)
--- NOTE | 2021-03-14 17:49 | Hospitalist Progress Note ---
Date of Service March 14, 2021 Assessment & Plan (1) Odontogenic infection of jaw: (2) Dental abscess: (3) Trismus: Plan: This is a 45-year-old male who has significant past medical history of tobacco abuse who presents to ED secondary to right lower jaw pain x3 to 4 days. POD#0 s/p I&D External Incision and Drainage of Right Submandibular Abscess(Right) and Extraction Tooth #31(Right) by Dr. Alvarado Diet clears to full to soft dental as tolerated post-operatively Continue IV Unasyn, OR cultures pending Pain control with PRN Toradol, morphine Follow up with Dr. Alvarado for drain removal on 03/17 (4) Tobacco abuse: Plan: Nicotine patch ordered for tobacco abuse Smoking cessation encouraged Plan: Smoking cessation encouraged DVT ppx: none Pt was seen and examined in collaboration with Dr. Snider, please see addendum Admission and Anticipated Discharge Date Admission Date: March 13, 2021 Supervising Physician Co-Signing Physician Notes Pt was seen and examined. Agreed with Pham MITTAL exam, assessment and plan. Pt said that he continue to have jaw pain He said that he cannot open it wide due to the pain Denies any SOB, dysphagia, palpitation and fever Gen: WD/WN, NAD, sitting in bed, A&Ox3 HEENT: + Edema of R lower mandible, mild trismus, TTP. + R cervical LAD A/P POD#0 s/p I&D External Incision and Drainage of Right Submandibular Ab scess(Right) and Extraction Tooth #31(Right) by Dr. Alvarado Continue IV Unasyn Will follow culture Continue pain control Tolerated diet and advanced Follow up with Dr. Alvarado for drain removal on Wednesday, 03/17 Clinically stable MD Agatha Subjective Seen and examined in 382-2. Feeling comfortable this morning after IV morphine, pain 2/10. N.p.o. in anticipation of incision and drainage this afternoon by Dr. Alvarado. Denies any fever, lightheadedness, chest pain, breath, nausea, vomiting, abdominal pain, dysuria, diarrhea or constipation. Review of Systems Review of Systems: At least ten systems reviewed and negative except as noted in the HPI. Physical Exam Physical Exam: Gen: WD/WN, NAD, sitting in bed, A&Ox3 HEENT: Normocephalic, atraumatic, MMM. + Edema of R lower mandible, mild trismus, TTP. + R cervical LAD Neck: trachea midline, no thyromegaly normal visual inspection Lung: Clear to Auscultation bilaterally, no wheezes/rales/rhonchi Heart: Regular rate, regular rhythm, no murmurs, rubs, or gallops Abdomen: Soft, NT, ND +BS x 4 Extremities: no edema Skin: Warm, no rash Results & Data Results & Data ([facility]) Vital Signs (Past 12 Hours) Vital Signs Temp Pulse Resp BP Pulse Ox 03/14/21 16:24 92 H 16 92 03/14/21 15:35 37.8 C H 93 H 18 125/80 92 03/14/21 07:05 36.9 C 75 18 100/61 94 Laboratory Results Short CBC 03/14/21 Range/Units 07:32 WBC 11.20 H (4.8-10.8) K/uL Hgb 13.9 L (14.0-18.0) g/dL Hct 41.2 L (42-52) % Plt Count 225 (130-400) K/uL BMP 03/14/21 07:32 Sodium 136 Potassium 3.6 Chloride 106 Carbon Dioxide 22 BUN 11 Creatinine 0.65 Glucose 102 H Calcium 7.8 L Liver Function 03/14/21 Range/Units 07:32 Total Bilirubin 0.9 (0.2-1.0) mg/dl Direct Bilirubin 0.1 (0-0.2) mg/dl AST 10 L (13-39) U/L ALT 16 (7-52) U/L Alkaline Phosphatase 60 (34-104) U/L Albumin 3.4 (3.4-5.0) gm/dl Diagnostic Findings Soft Tissue Neck CT 03/13/21 10:01 CT OF THE NECK WITH IV CONTRAST CLINICAL HISTORY: Right lower jaw swelling. COMPARISON STUDY: No previous studies for comparison. TECHNIQUE: Following IV administration of 95 mL of Optiray, helical axial images of the neck were obtained. Sagittal and coronal reconstructions were viewed. Automated exposure control was utilized for the study. A dose lowering technique was utilized adhering to the principles of ALARA. CT DOSE: 410.12 mGycm FINDINGS: Visualized portions of the intracranial contents are unremarkable. Bilateral mastoid air cells are partially opacified. Visualized portions of the sinuses are clear. No orbital abnormality is identified on this exam. The epiglottis is normal. Note is made of a dental caries of the right second mandibular molar with associated periapical abscess with associated disruption of the medial cortex of the mandible. There is an adjacent rim-enhancing fluid collection which measures 3.7 x 1.7 cm consistent with an abscess. There is extensive adjacent inflammation with thickening of the right platysma and adjacent fluid. No additional fluid collections are present. There is no soft tissue gas. Inflammation results in mild effacement of the pharynx. Lung apices are unremarkable. Major vasculature of the neck is patent. Multiple mildly enlarged right cervical lymph nodes are likely reactive. Inflammation adjacent to the right submandibular gland is due to the odontogenic infection. IMPRESSION: 1. 3.7 x 1.7 cm abscess along the body of the right hemimandible, as described above. This is due to a periapical abscess of the right second mandibular molar with associated cortical disruption. Extensive adjacent inflammation with mild effacement of the pharynx. 2. Mildly enlarged right cervical lymph nodes which are likely reactive. ACT 112: Negative or not required by law. Electronically signed by: James Burris M.D. 03/13/2021 11:54 AM
[2021-03-14] MEDS ORDERED: ePHEDrine sulfate 50 MG/ML AMP IV PRN (18:16)
[2021-03-14] MEDS ORDERED: ATROPINE SULFATE 0.1 MG/ML 10ML SYR IV PRN (18:16)
[2021-03-14] MEDS ORDERED: ONDANSETRON INJ 2 MG/ML 2 ML VIAL IV PRN (18:16)
[2021-03-14] MEDS ORDERED: fentaNYL citrate 100 MCG/2 ML VIAL IV PRN (18:16)
--- NOTE | 2021-03-14 18:28 | Anesthesiology Progress Note ---
Date of Service March 14, 2021 Anesthesia Post Procedure Vital Signs Vital Signs: Temp Pulse Pulse Resp BP Pulse Ox 03/14/21 18:25 81 19 111/60 93 03/14/21 18:15 76 18 111/56 L 92 03/14/21 18:05 36.2 C L 71 18 105/58 L 92 03/14/21 16:24 92 H 16 92 03/14/21 15:35 37.8 C H 93 H 18 125/80 92 03/14/21 07:05 36.9 C 75 18 100/61 94 03/13/21 22:35 37.8 C H 89 16 130/62 93 Pain Intensity Jaw: Pain Intensity: 7 Transfer of Care Handoff Completed per policy Notes Mental Status: alert / awake / arousable and participated in evaluation Patient Amnestic to Procedure: Yes Nausea / Vomiting: adequately controlled Pain: adequately controlled Airway Patency, RR, SpO2: stable & adequate BP & HR: stable & adequate Hydration State: stable & adequate Anesthetic Complications: no major complications apparent and Pt Satisfied with anesthetic care
--- NOTE | 2021-03-14 18:35 | Operative Report ---
PG Post Operative Report Pre & Post Diagnosis Operation Date: 03/14/21 10:05 Pre-Op Diagnosis: Dental abscess; Trismus; Right submandibular space infection Post-Op Diagnosis: Dental abscess; Trismus; Right submandibular space infection I identified the patient and participated in the time-out.: Yes Procedure Operation Date: 03/14/21 10:05 Actual Procedures p External Incision and Drainage of Right Submandibular Abscess(Right) - Lior Alvarado DMD s Extraction Tooth #31(Right) - Lior Alvarado DMD Surgeon Lior Alvarado DMD Dental Sales Representative none Estimated Blood Loss 10 Findings Consistent with Post-Op Diagnosis acute facial and floor of mouth abscess Specimens C and S floor of the mouth C and S right submandibular area Drains 1/4 [place] Anesthesia Type General Regional Indications infection Description of Procedure Actual Procedures p Incision and Drainage Submandibular/ right Floor of the mouth Abscess; Removal of Tooth #31(Not Applicable) - Lior Alvarado DMD Once cleared for surgery general anesthesia was achieved, the eyes were protected by the anesthesia dept criteria. A time out was take for patient ID, antibiotics, equipment and position verification once all agreed the procedure began. Local anesthesia using Marcaine with a vasoconstrictor ( 1.8 ml per site) given into right inferior alveolar nerve A throat pack was placed after the oral cavity was irrigated with saline. Once a surgical level of anesthesia was obtained and the local anesthesia was given time for the blocks the surgery was started. I turned my attention to the infection which was located in the floor of the mouth and submandibular area. The tongue was elevated and there was also swelling associated with tooth # 31 ( see CT scan report) Incision and Drainage The facial area was prepped. The 15 blade was used to make a .5 cm incision through the skin. The hemostat was passed upward along the lateral of the mandibular body. Some pus was encounter. Now using a 15 blade an incision was made in the right floor of the mouth and medial to the duct of the submandibular gland. Once the incision was made a lot of pus extruded from the site. This drainage was cultured for anaerobic and aerobic bacteria. A curved hemostat was carefully placed into the infected space along the medial side of the lower jaw and into the previous made submandibular incision. Some further drainage was now allowed to escape. I palpated the chin and submental area and no further drainage was expressed. A Ashley was now passed from the submandibular to the floor of the mouth. It was sutured with chromic intraoral and 5-0 nylon extraoral. The area was irrigated with at least 100 ml of NS solution. I now turned my attention to remove the # 31 tooth. Lower # 31 The full thick Muco-periosteal flap was made on the facial aspect from # 19-32 The flap was reflected to expose the the subperiosteal space the bone adjacent to # 31. Bone was remove, the tooth roots were removed with a 301 elevator, there was a large amount of granulation tissue on the apex with perforation of the lingual plate and some more pus that was expressed. When the procedure was completed I inspected the sites to insure all bleeding was controlled and the drain was stable . I removed the throat pack and suctioned the throat an OG tube was used to drain the stomach . A gauze pressure dressings was placed. All instrument and sponge count was correct. the patient was allowed to awake from the anesthesia. Once full awake the anesthesia tube was removed and the patient was taken to the recovery room with all vital sign stable. The patient tolerated the surgery very well. I will follow the patient in my office, Rx and instructions will be given upon discharge. Drain removal is slated for WednesdayMar 17 in my office. I attest to the content of the Intraoperative Record and any orders documented therein. Any exceptions are noted below.
[2021-03-15] MEDS: AMPICILLIN/SULBACTAM SOD 3,000 MG in 0.9 % SODIUM CHLORIDE 100 ML IV SCH ×2 (03:31→09:30)
[2021-03-15 06:43] LABS: Hematocrit (blood only) 40.5 % (42-52); Hemoglobin 14.1 g/dL (14.0-18.0); Mean Corpuscular Hemoglobin 31.9 pg (25-34); Mean Corpuscular Hgb Conc 34.8 g/dL (32-36); Mean Corpuscular Volume 91.6 fL (80-100); Mean Platelet Volume 9.5 fL (7.4-10.4); Platelet Count 290 K/uL (130-400); RDW Coefficient of Variation 11.8 % (11.5-14.5); RDW Standard Deviation 40.2 fL (36.4-46.3); Red Blood Count 4.42 M/uL (4.7-6.1); White Blood Count 13.07 K/uL (4.8-10.8)
[2021-03-15] MEDS: NICOTINE 21 MG/24 HR TDSY TD SCH (07:44)
[2021-03-15 08:03] LABS: BUN Creatinine Ratio 12.1 (10-20); Calcium 8.8 mg/dl (8.5-10.1); Creatinine Clr Calc Pharmacy 156.6 ml/min; Est GFR (African American) 134.4 ml/min; Est GFR (Non-African American) 115.9 ml/min; Potassium 4.2 mmol/L (3.5-5.1)
--- NOTE | 2021-03-15 09:24 | Oral/Maxillofacial Progress Nt ---
Date of Service March 15, 2021 Assessment & Plan Admission and Anticipated Discharge Date Admission Date: March 13, 2021 Subjective Post Op infection evaluation s/p I&D The infected area responded very well. Swelling is less and he has no pain. Some improvement in oral opening noted Good drainage is noted. Drain will be removed Wednesday afternoon Cultures pending . Infection has responded very well to the antibiotics, extraction and the I and D. I requested that the patient continue with massage, heat and wound care. Based on the fact that we have good drainage and overall improvement I will discharge Dewey on oral antibiotics -Augmentin and will follow up with him on WednesdayMar 17 at 3:45 for drain removal. Results & Data ([facility]) Vital Signs (Past 12 Hours) Vital Signs Temp Pulse Pulse Resp BP Pulse Ox 03/15/21 09:17 36.5 C 85 62 18 119/76 96 03/15/21 07:24 36.5 C 53 L 18 119/76 96 03/15/21 03:00 36.6 C 75 16 120/75 93 03/14/21 22:46 37.1 C 82 16 127/77 92 PG Care Time/CCT Total # of Minutes Spent Total Time Spent with Patient: Total time spent is greater than 50% in coordination of care (as documented) at patient's floor/unit and/or counseling patient: Coding Level of Care Code None
--- NOTE | 2021-03-15 09:36 | Discharge Summary ---
Date of Service March 15, 2021 Post Op infection evaluation s/p I&D The infected area responded very well. Swelling is less and he has no pain. Some improvement in oral opening noted Good drainage is noted. Drain will be removed Wednesday afternoon Cultures pending . Infection has responded very well to the antibiotics, extraction and the I and D. I requested that the patient continue with massage, heat and wound care. Based on the fact that we have good drainage and overall improvement I will discharge Dewey on oral antibiotics -Augmentin and will follow up with him on WednesdayMar 17 at 3:45 for drain removal. Admission HPI Per Admitting Provider This is a 45-year-old male who has significant past medical history of tobacco abuse who presents to ED secondary to right lower jaw pain x3 to 4 days. He states he broke his tooth on his right lower molar last Wednesday. On Wednesday he started to develop pain in his right lower jaw. Pain has worsened and he has developed significant swelling to right lower jaw. He has been unable to eat anything for the last 3 days due to pain with chewing and difficulty open/closing jaw. He has been able to tolerate liquids, specifically water. He has been taking ibuprofen for pain with minimal relief. He has never had an ything similar. He complains of pain as a 7 out of 10 due to recent manipulation from oral surgeon. He denies recent dental work and states it has been a while since seeing a dentist. He denies fever, chills, sweats, lightheadedness, dizziness, difficulty breathing, dysphagia, nausea, vomiting, abdominal pain, changes bowel or urinary habits. He is a 1 pack/day smoker for approximately 25 years. He also drinks occasional alcohol. He denies any illicit drug use. He denies any prior surgical history. Admission Exam (Per Admitting) Neck gross swelling floor of the mouth and right submandibular area Discharge Data Consultations 03/13/21 13:31 ED Decision to Admit Stat Procedures Performed Operation Date: 03/14/21 10:05 Actual Procedures p External Incision and Drainage of Right Submandibular Abscess(Right) - Lior Alvarado DMD s Extraction Tooth #31(Right) - Lior Alvarado DMD Hospital Course (1) Dental abscess: (2) Trismus: (3) Submandibular space infection: Coding Level of Care Code D/C DAY MANAGEMENT <30 MINS Diagnoses Dental abscess K04.7 Trismus R25.2 Submandibular space infection K12.2
--- NOTE | 2021-03-15 11:09 | Hospitalist Progress Note ---
Date of Service March 15, 2021 Assessment & Plan (1) Odontogenic infection of jaw: (2) Dental abscess: (3) Trismus: Plan: This is a 45-year-old male who has significant past medical history of tobacco abuse who presents to ED secondary to right lower jaw pain x3 to 4 days. POD#1 s/p I&D External Incision and Drainage of Right Submandibular Abscess(Right) and Extraction Tooth #31(Right) by Dr. Alvarado Diet clears to full to soft dental as tolerated post-operatively Currently on IV Unasyn, will transition to PO Augmentin Follow up culture from the I&D Pain control with PRN Toradol, morphine Ok from Oral surgery standpoint to discharge home Follow up with Dr. Alvarado for drain removal on Wednesday, 03/17 (4) Tobacco abuse: Plan: Nicotine patch ordered for tobacco abuse Counseling on smoking cessation Plan: Smoking cessation encouraged DVT ppx: none Disposition Discharge home today Admission and Anticipated Discharge Date Admission Date: March 13, 2021 Subjective Pt was seen and examined for follow up of incision and Drainage of Right Submandibular Abscess Sitting in bed with no acute distress Pt said that he feels fine He said that pain is control Denies any chest pain, palpitation, dizziness and SOB Review of Systems Review of Systems: All systems reviewed & are unremarkable except as noted in Subjective Physical Exam Physical Exam: Gen: WD/WN, NAD, sitting in bed, A&Ox3 HEENT: + Edema of R lower mandible, mild trismus, TTP. + R cervical LAD Neck: trachea midline, no thyromegaly normal visual inspection Lung: Clear to Auscultation bilaterally, no wheezes/rales/rhonchi Heart: Regular rate, regular rhythm, no murmurs, rubs, or gallops Abdomen: Soft, NT, ND +BS x 4 Extremities: no edema Skin: Warm, no rash Results & Data Results & Data ([facility]) Vital Signs (Past 12 Hours) Vital Signs Temp Pulse Pulse Resp BP Pulse Ox Pulse Ox 03/15/21 10:00 99 03/15/21 09:17 36.5 C 85 62 18 119/76 96 03/15/21 07:24 36.5 C 53 L 18 119/76 96 03/15/21 03:00 36.6 C 75 16 120/75 93
== END 2021-03-15 12:11 | disposition home or self-care (01) ==
LOC: ED 09:39 → 3N 09:39 → SUATTDRO 13:40 → 3N 14:28